=== PATIENT | female | born 1990 | race Caucasian/White ===

== ENCOUNTER 2021-02-14 19:39 | Emergency (ER) | payer OTHER ==
[2021-02-14 19:47] VITALS: BP 123/83; PULSE 100; TEMP 98.1; BMI 35.6
== END 2021-02-14 23:00 | disposition home or self-care (01) ==
LOC: JERFT 19:39
DX: M54.2 Cervicalgia (principal); S09.93XA Unspecified injury of face, initial encounter; S09.90XA Unspecified injury of head, initial encounter; Y04.0XXA Assault by unarmed brawl or fight, initial encounter; Y92.9 Unspecified place or not applicable
CPT/HCPCS: 70450-TC; 70486-TC; 72125-TC; 99284-25